=== PATIENT | female | born 1985 | race Hispanic/Latino ===

== ENCOUNTER 2020-09-12 13:09 | Emergency (ER) | payer SELFPAY ==
[~2020-09-12] VITALS: Ht 149.9 cm; Wt 69.9 kg
--- NOTE | 2020-09-12 13:22 | Emergency Department Note ---
History of Present Illnes History of Present Illness Chief Complaint: COVID PUI History of Present Illness This is a 35 year old female with recent diagnosis of COVID-19 infection presents to the ED for DENISSE and increasing myalgias . Historian: Patient Arrival Mode: Car Onset (how long ago): day(s) (8) Radiation: Reports non-radiation Severity: moderate Onset quality: gradual Duration (how long): day(s) Timing of current episode: constant Progression: worsening Chronicity: new Context: Reports recent illness Relieving factors: none Exacerbating factors: none Associated symptoms: Reports fever/chills Treatments prior to arrival: none Previous service: tests performed Past Medical/Family History Physician Review I have reviewed the patient's past medical and family history. Any updates have been documented here. Past Medical History Recent Fever: Yes Clinical Suspicion of Infectio: Yes New/Unexplained Change in Ment: No Past Medical History: None Past Surgical History: None Social History Smoking Cessation: Never Smoker Counseling Performed: No Alcohol Use: None Any Illegal Drug Use: No Review of Systems Review of Systems Constitutional: Reports fever, Reports malaise Physical Exam Related Data Allergies: Coded Allergies: No Known Allergies (Unverified , 09/12/20) Triage Vital Signs Vital Signs Date Time Temp Pulse Resp B/P (MAP) Pulse Ox O2 Delivery O2 Flow Rate FiO2 09/12/20 13:19 99.7 93 20 129/84 98 Room Air Vital signs reviewed: Yes Physical Exam CONSTITUTIONAL Constitutional: Present well-developed, Present ill appearing HENT HENT: Present normocephalic, Present atraumatic, Present oropharynx clear/moist, Present nose normal HENT L/R: Present left ext ear normal, Present right ext ear normal EYES Eyes: Reports PERRL, Reports conjunctivae normal NECK Neck: Present ROM normal PULMONARY Pulmonary: Present effort normal, Present breath sounds normal CARDIOVASCULAR Cardiovascular: Present regular rhythm, Present heart sounds normal, Present capillary refill normal, Present normal rate GASTROINTESTINAL Abdominal: Present soft, Present nontender, Present bowel sounds normal GENITOURINARY Genitourinary: Present exam deferred SKIN Skin: Present warm, Present dry MUSCULOSKELETAL Musculoskeletal: Present ROM normal NEUROLOGICAL Neurological: Present alert, Present oriented x 3, Present no gross motor or sensory deficits PSYCHOLOGICAL Psychological: Present mood/affect normal, Present judgement normal Results Laboratory Lab results reviewed: Yes Assessment & Plan Medical Decision Making MDM Diff Dx: COVID-19 infection, PNA, Sepsis, respiratory failure Assessment & Plan Final Impression: (1) Upper respiratory tract infection due to COVID-19 virus Depart Disposition: HOME, SELF-CARE DALTON MALHOTRA DO Sep 12, 2020 13:22
[2020-09-12] MEDS ORDERED: KETOROLAC TROMETHAMINE 60 MG/2 ML VIAL IM ONE (13:30)
--- NOTE | 2020-09-12 14:47 | Diagnostic Imaging Report ---
TECHNIQUE: Frontal view of the chest. INDICATION: ^Y ^cough ^[id number] ^[id number] COMPARISON: None. IMPRESSION: Lines and hardware: None. Heart and mediastinum: Unremarkable. Lungs and pleura: No focal airspace consolidation. No pleural effusion. No pneumothorax. Soft tissues and bones: No acute abnormality. Signed by: Thong Brown MD on 09/12/2020 2:44 PM
== END 2020-09-12 15:18 | disposition home or self-care (01) ==
LOC: ER 13:47
DX: U07.1 COVID-19 (principal); J06.9 Acute upper respiratory infection, unspecified; R05 Cough; R06.02 Shortness of breath; M79.10 Myalgia, unspecified site
CPT/HCPCS: 71045; 81025; 99283

== ENCOUNTER 2022-09-18 20:49 | Emergency (ER) | payer BC, SELFPAY ==
[~2022-09-18] VITALS: Ht 149.9 cm; Wt 69.9 kg
[2022-09-19] MEDS ORDERED: ACETAMINOPHEN500 MG PO (00:15)
[2022-09-19] MEDS ORDERED: IBUPROFEN200 MG PO (00:15)
== END 2022-09-19 00:39 | disposition home or self-care (01) ==
LOC: FSED 20:59
DX: R10.32 Left lower quadrant pain (principal); R10.2 Pelvic and perineal pain; Z86.16 Personal history of COVID-19
CPT/HCPCS: 74176; 76856; 80053; 81003; 81025; 85025; 99284